=== PATIENT | male | born 1955 | race Caucasian/White ===

== ENCOUNTER 2017-10-27 10:57 | Emergency (ER) | payer MEDICAID ==
[~2017-10-27] VITALS: Ht 165.1 cm; Wt 77.1 kg
[2017-10-27 11:20] VITALS: BP 134/87
== END 2017-10-27 14:11 | disposition left against medical advice (07) ==
LOC: ER 10:57
DX: R10.2 Pelvic and perineal pain (principal); Z53.21 Procedure and treatment not carried out due to patient leaving prior to being seen by health care provider
CPT/HCPCS: 93005

== ENCOUNTER 2018-09-20 08:19 | Inpatient (IN) | payer MEDICAID ==
[~2018-09-20] VITALS: Ht 165.1 cm; Wt 78.3 kg
[2018-09-20] MEDS ORDERED: ONDANSETRON HCL 4 MG/2 ML VIAL ONE (08:41)
[2018-09-20] MEDS ORDERED: ONDANSETRON HCL 4 MG/2 ML VIAL IV ONE (08:45)
[2018-09-20] MEDS ORDERED: SODIUM CHLORIDE 0.9% 1,000 ML IV ONE (08:45)
[2018-09-20 09:08] LABS: Basophils # (auto) 0 uL; Basophils % (auto) 0.2 % (0.0-2.0); Eosinophils # (auto) 0 uL; Eosinophils % (auto) 0.3 % (0.0-7.0); Hematocrit 48.7 % (41.0-53.0); Hemoglobin 17.1 g/dL (13.5-17.5); Lymphocytes # (auto) 0.2 uL; Lymphocytes % (auto) 2.1 % (10.0-50.0); Mean Corpuscular Hemoglobin 33.1 pg (28.0-32.0); Mean Corpuscular Hgb Conc. 35.2 g/dL (32.0-36.0); Monocytes # (auto) 0.2 uL; Monocytes % (auto) 2.7 % (0.0-12.0); Neutrophils % (auto) 94.7 % (37.0-80.0); Platelet Count (auto) 155 10^3/uL (140-450); Red Blood Cells 5.18 10^6/uL (4.5-5.90); Red Cell Distribution Width 13.2 % (11.8-14.3); White Blood Cell 8.5 10^3/uL (4.4-10.8)
[2018-09-20 09:21] LABS: Albumin 4.5 g/dL (3.4-5.0); Calcium 8.8 mg/dL (8.5-10.1); Potassium 3.7 mmol/L (3.5-5.1)
[2018-09-20 09:26] LABS: BUN/Creatinine Ratio 21.1; Bilirubin, Total 0.7 mg/dL (0.2-1.0); Total Protein 7.4 g/dL (6.4-8.2)
[2018-09-20] MEDS ORDERED: metroNIDAZOLE 500MG/100ML 100 ML IV ONE (10:30)
[2018-09-20] MEDS ORDERED: PROMETHAZINE HCL 25 MG/ML 1ML IV ONE (10:30)
[2018-09-20] MEDS: SODIUM CHLORIDE 0.9% 1,000 ML IV SCH ×2 (11:23→21:23)
[2018-09-20] MEDS ORDERED: LORazepam 0.5 MG TAB PO PRN (11:30)
[2018-09-20] MEDS ORDERED: TEMAZEPAM 15 MG CAP PO PRN (11:30)
[2018-09-20] MEDS ORDERED: ACETAMINOPHEN 500 MG TAB PO PRN (11:30)
[2018-09-20] MEDS ORDERED: DEXTROSE (50%) 50ML SYRG IV PRN (11:30)
[2018-09-20] MEDS ORDERED: PROMETHAZINE HCL 25 MG/ML 1ML IV PRN (11:30)
[2018-09-20] MEDS ORDERED: MORPHINE SULFATE 4 MG/ML SYR/VIAL IV PRN (11:30)
[2018-09-20] MEDS ORDERED: NITROGLYCERIN 0.4 MG SL TAB SL PRN (11:30)
[2018-09-20] MEDS ORDERED: cefTRIAXone 1GM/50ML D5W 50 ML IV ONE (11:30)
[2018-09-20] MEDS: FAMOTIDINE (10MG/ML) 2ML VL IV SCH ×2 (11:58→23:16)
[2018-09-20] MEDS ORDERED: metroNIDAZOLE 500MG/100ML 100 ML IV SCH (12:00)
[2018-09-20 12:07] LABS: Amylase 87 U/L (25-115); Lipase 145 U/L (73-393)
[2018-09-20] MEDS: ACCU-CHEK COMFORT CURVE STRIP VI SCH ×3 (12:27→23:21)
[2018-09-20 13:14] VITALS: BP 146/101
[2018-09-20] MEDS: KETOROLAC TROMETH 30 MG/ML 1ML VIAL IV PRN ×2 (13:15→21:24)
[2018-09-20] MEDS ORDERED: ATOR10TA52 PO (15:24)
[2018-09-20] MEDS ORDERED: OMEP20TA PO (15:24)
[2018-09-20 16:38] VITALS: BP 138/95
[2018-09-20] MEDS: metroNIDAZOLE 500MG/100ML 100 ML IV SCH ×2 (17:40→23:16)
[2018-09-20 19:44] LABS: Urine Bacteria NONE SEEN /hpf (None Seen); Urine Blood Negative /uL (Negative); Urine Mucus FEW (None Seen); Urine Specific Gravity 1.028 (1.001-1.035); Urine WBC 1 /hpf (0 - 3)
[2018-09-20 20:13] LABS: Alcohol, Urine < 3.0 mg/dL (0-5); Amphetamine Screen, Urine NEGATIVE (NEGATIVE); Barbiturate Scree,Urine NEGATIVE (NEGATIVE); Benzodiazephine Screen, Urine NEGATIVE (NEGATIVE); Cannabinoid Screen, Urine POSITIVE (NEGATIVE); Cocaine Screen, Urine NEGATIVE (NEGATIVE); Opiate Scree,Urine NEGATIVE (NEGATIVE); Phencyclidine Screen, Urine NEGATIVE (NEGATIVE)
[2018-09-20 22:00] VITALS: BP 119/89
[2018-09-21] MEDS: KETOROLAC TROMETH 30 MG/ML 1ML VIAL IV PRN ×2 (04:20→10:47)
[2018-09-21 04:56] VITALS: BP 131/87
[2018-09-21] MEDS: ACCU-CHEK COMFORT CURVE STRIP VI SCH (05:49)
[2018-09-21] MEDS: metroNIDAZOLE 500MG/100ML 100 ML IV SCH (05:50)
[2018-09-21 06:41] LABS: Basophils # (auto) 0 uL; Basophils % (auto) 0.2 % (0.0-2.0); Eosinophils # (auto) 0 uL; Eosinophils % (auto) 0.8 % (0.0-7.0); Hematocrit 43.9 % (41.0-53.0); Hemoglobin 15.2 g/dL (13.5-17.5); Lymphocytes # (auto) 0.5 uL; Lymphocytes % (auto) 9.1 % (10.0-50.0); Mean Corpuscular Hemoglobin 32.6 pg (28.0-32.0); Mean Corpuscular Hgb Conc. 34.7 g/dL (32.0-36.0); Mean Corpuscular Volume 93.8 fL (80.0-100.0); Monocytes # (auto) 0.4 uL; Monocytes % (auto) 7.6 % (0.0-12.0); Neutrophils # (auto) 4.6 uL; Neutrophils % (auto) 82.3 % (37.0-80.0); Platelet Count (auto) 136 10^3/uL (140-450); Red Blood Cells 4.68 10^6/uL (4.5-5.90); Red Cell Distribution Width 13.3 % (11.8-14.3); White Blood Cell 5.6 10^3/uL (4.4-10.8)
[2018-09-21 06:42] LABS: Potassium 3.3 mmol/L (3.5-5.1)
[2018-09-21 06:50] LABS: Albumin 3.2 g/dL (3.4-5.0); BUN/Creatinine Ratio 21.4; Bilirubin, Total 0.6 mg/dL (0.2-1.0); Calcium 7.8 mg/dL (8.5-10.1); Total Protein 5.6 g/dL (6.4-8.2)
[2018-09-21 08:36] VITALS: BP 129/79
[2018-09-21] MEDS ORDERED: cefTRIAXone 1GM/50ML D5W 50 ML IV SCH (09:00)
[2018-09-21] MEDS: SODIUM CHLORIDE 0.9% 1,000 ML IV SCH ×2 (09:55→13:27)
[2018-09-21] MEDS ORDERED: PANTOPRAZOLE 40 MG TAB PO ONE (12:00)
[2018-09-21] MEDS ORDERED: POTASSIUM CHL 20 Meq TABLET PO ONE (12:00)
[2018-09-21 12:19] VITALS: BP 133/94
[2018-09-21] MEDS: traMADol HCL 50 MG TAB PO PRN ×2 (13:46→21:53)
[2018-09-21 16:59] VITALS: BP 148/98
[2018-09-21] MEDS: PANTOPRAZOLE 40 MG TAB PO SCH (21:53)
[2018-09-21 22:00] VITALS: BP 137/85
[2018-09-22] MEDS: SODIUM CHLORIDE 0.9% 1,000 ML IV SCH (01:28)
[2018-09-22 05:00] VITALS: BP 135/91
[2018-09-22] MEDS: PANTOPRAZOLE 40 MG TAB PO SCH (09:35)
[2018-09-22] MEDS: traMADol HCL 50 MG TAB PO PRN ×2 (09:35→15:35)
[2018-09-22 12:27] VITALS: BP 146/90
[2018-09-22 17:29] VITALS: BP 147/90
== END 2018-09-22 18:45 | disposition home or self-care (01) | DRG 816 ==
LOC: ER 08:21 → TELE 11:23 → TELE-EAST 13:05
PROVIDERS: ADMIT Internal Medicine; ATTEND Internal Medicine
DX: T62.91XA Toxic effect of unspecified noxious substance eaten as food, accidental (unintentional), initial encounter (principal); E44.0 Moderate protein-calorie malnutrition; B19.20 Unspecified viral hepatitis C without hepatic coma; K52.9 Noninfective gastroenteritis and colitis, unspecified; E87.6 Hypokalemia; J45.909 Unspecified asthma, uncomplicated; R00.0 Tachycardia, unspecified; Z83.3 Family history of diabetes mellitus; Z90.49 Acquired absence of other specified parts of digestive tract; Z87.891 Personal history of nicotine dependence; Y92.89 Other specified places as the place of occurrence of the external cause; Z68.28 Body mass index [BMI] 28.0-28.9, adult
CPT/HCPCS: 36415; 71045; 74176; 80053; 80307; 81001; 82150; 82962; 83036; 83690; 84443; 85025; 85652; 86141; 87081; 94761; 96361; 96365; 96367; 96375; G0378; J0696; J1885; J2405; J3490

== ENCOUNTER 2019-03-07 05:37 | Emergency (ER) | payer MEDICAID ==
[~2019-03-07] VITALS: Ht 165.1 cm; Wt 81.6 kg
[~2019-03-07 05:37] MED LIST: ATOR10TA52 PO; OMEP20TA PO
[2019-03-07] MEDS ORDERED: HYDROcodone-ACET 5/325MG TAB PO ONE (06:30)
[2019-03-07 07:25] LABS: Basophils # (auto) 0 uL; Basophils % (auto) 0.9 % (0.0-2.0); Eosinophils # (auto) 0.1 uL; Hematocrit 47.9 % (41.0-53.0); Hemoglobin 16.4 g/dL (13.5-17.5); Lymphocytes # (auto) 1.2 uL; Lymphocytes % (auto) 24.4 % (10.0-50.0); Mean Corpuscular Hemoglobin 32.3 pg (28.0-32.0); Mean Corpuscular Hgb Conc. 34.2 g/dL (32.0-36.0); Mean Corpuscular Volume 94.3 fL (80.0-100.0); Monocytes # (auto) 0.4 uL; Monocytes % (auto) 8.9 % (0.0-12.0); Neutrophils # (auto) 3.1 uL; Neutrophils % (auto) 63.8 % (37.0-80.0); Platelet Count (auto) 169 10^3/uL (140-450); Red Blood Cells 5.07 10^6/uL (4.5-5.90); Red Cell Distribution Width 12.8 % (11.8-14.3); White Blood Cell 4.9 10^3/uL (4.4-10.8)
[2019-03-07 07:28] LABS: INR 1.07 (0.9-1.15); Partial Thromboplastin Time 29.1 sec (23.78-33.04); Prothrombin Time 11.4 sec (9.27-12.13)
[2019-03-07 07:30] LABS: Albumin 4.1 g/dL (3.4-5.0); BUN/Creatinine Ratio 13.7; Potassium 4.3 mmol/L (3.5-5.1)
[2019-03-07 07:33] LABS: Bilirubin, Total 0.7 mg/dL (0.2-1.0); Total Protein 7.1 g/dL (6.4-8.2)
[2019-03-07 07:35] VITALS: BP 150/102
== END 2019-03-07 08:35 | disposition home or self-care (01) ==
LOC: ER 05:41
DX: L76.22 Postprocedural hemorrhage of skin and subcutaneous tissue following other procedure (principal); M19.90 Unspecified osteoarthritis, unspecified site; K21.9 Gastro-esophageal reflux disease without esophagitis; E78.5 Hyperlipidemia, unspecified; Z90.49 Acquired absence of other specified parts of digestive tract; Y83.8 Other surgical procedures as the cause of abnormal reaction of the patient, or of later complication, without mention of misadventure at the time of the procedure; Y82.8 Other medical devices associated with adverse incidents
CPT/HCPCS: 36415; 80053; 85025; 85610; 85730

== ENCOUNTER 2019-12-07 18:58 | Emergency (ER) | payer MEDICAID ==
[~2019-12-07] VITALS: Ht 165.1 cm; Wt 77.1 kg
[2019-12-07 21:32] LABS: Urine Bacteria NONE SEEN /hpf (None Seen); Urine Blood Negative /uL (Negative); Urine Mucus FEW (None Seen); Urine Specific Gravity 1.021 (1.001-1.035); Urine WBC <1 /hpf (0 - 3)
[2019-12-07 22:15] VITALS: BP 130/95
== END 2019-12-07 22:35 | disposition home or self-care (01) ==
LOC: ER 18:58
DX: S83.91XA Sprain of unspecified site of right knee, initial encounter (principal); K21.9 Gastro-esophageal reflux disease without esophagitis; E78.5 Hyperlipidemia, unspecified; Z90.49 Acquired absence of other specified parts of digestive tract; X50.1XXA Overexertion from prolonged static or awkward postures, initial encounter; Y93.89 Activity, other specified; Y92.89 Other specified places as the place of occurrence of the external cause; Y99.8 Other external cause status
CPT/HCPCS: 36415; 73590; 81001; 85379

== ENCOUNTER 2021-11-19 03:56 | Emergency (ER) | payer OTHER, MEDICAID ==
[~2021-11-19] VITALS: Ht 172.7 cm; Wt 79.4 kg
[2021-11-19 07:25] VITALS: BP 161/105
[2021-11-19] MEDS ORDERED: DexAMETHasone SOD PHOS 10MG/1ML VIAL INJ IV ONE (07:45)
[2021-11-19] MEDS ORDERED: cefTRIAXone 1GM/50ML D5W 50 ML IV ONE (07:45)
[2021-11-19] MEDS ORDERED: AZIT250T8 PO (08:28)
[2021-11-19] MEDS ORDERED: PRED20TA2 PO (08:28)
== END 2021-11-19 08:38 | disposition home or self-care (01) ==
LOC: ER 03:56
DX: J45.909 Unspecified asthma, uncomplicated (principal); Z20.822 Contact with and (suspected) exposure to COVID-19
CPT/HCPCS: 36415; 71045; 87426; 96365; 96375; 99284; J0696; J1100

== ENCOUNTER 2022-09-14 20:43 | Emergency (ER) | payer OTHER, MEDICAID ==
[~2022-09-14] VITALS: Ht 165.1 cm; Wt 79.0 kg
[~2022-09-14 20:43] MED LIST changes: +AZIT250T8 PO; +PRED20TA2 PO
[2022-09-15] MEDS ORDERED: IBUPROFEN 800 MG TAB PO ONE (01:15)
[2022-09-15 03:49] VITALS: BP 128/84
[2022-09-15] MEDS ORDERED: ALBUAER3 IN (04:15)
[2022-09-15] MEDS ORDERED: AZIT250T8 PO (04:15)
[2022-09-15] MEDS ORDERED: OSEL75CA5 PO (04:15)
== END 2022-09-15 04:25 | disposition home or self-care (01) ==
LOC: ER 20:43
DX: J11.1 Influenza due to unidentified influenza virus with other respiratory manifestations (principal); J18.9 Pneumonia, unspecified organism; J45.909 Unspecified asthma, uncomplicated; R07.89 Other chest pain; Z90.49 Acquired absence of other specified parts of digestive tract; Z20.822 Contact with and (suspected) exposure to COVID-19
CPT/HCPCS: 36415; 71046; 87426; 87804

== ENCOUNTER 2023-03-19 05:57 | Emergency (ER) | payer OTHER, MEDICAID ==
[~2023-03-19] VITALS: Ht 165.1 cm; Wt 79.5 kg
[~2023-03-19 05:57] MED LIST changes: +ALBUAER3 IN; +OSEL75CA5 PO
[2023-03-19 07:34] VITALS: BP 142/83
[2023-03-19] MEDS ORDERED: ACETAMINOPHEN 500 MG TAB PO ONE (08:15)
[2023-03-19] MEDS ORDERED: LIDO5PAD8 EX (09:46)
[2023-03-19] MEDS ORDERED: CYCL-837 PO (09:46)
[2023-03-19] MEDS ORDERED: GABA100C9 PO (09:46)
== END 2023-03-19 10:10 | disposition home or self-care (01) ==
LOC: ER 05:57
DX: S39.012A Strain of muscle, fascia and tendon of lower back, initial encounter (principal); I10 Essential (primary) hypertension; E78.5 Hyperlipidemia, unspecified; J45.909 Unspecified asthma, uncomplicated; K21.9 Gastro-esophageal reflux disease without esophagitis; Z90.49 Acquired absence of other specified parts of digestive tract; Z79.2 Long term (current) use of antibiotics; Z79.899 Other long term (current) drug therapy; X58.XXXA Exposure to other specified factors, initial encounter; Y93.89 Activity, other specified; Y92.89 Other specified places as the place of occurrence of the external cause; Y99.8 Other external cause status
CPT/HCPCS: 72131

== ENCOUNTER 2025-02-24 10:07 | Inpatient (IN) | payer OTHER, MEDICAID ==
[~2025-02-24] VITALS: Ht 165.1 cm; Wt 89.0 kg
[~2025-02-24 10:07] MED LIST changes: +AZIT-185 PO; -AZIT250T8 PO; +CYCL-837 PO; +GABA-1308 PO; +LIDO5PAD12 EX
--- NOTE | 2025-02-24 10:30 | ED.PDOC ---
HPI Comments 69 year old male presents to the ED with a chief complaint of chest pain onset today (02/24/25) about 30 minutes ago. Patient states he was cleaning his dashboard, sneezed and began experiencing sharp chest pain, heard a "snap", thinks he might have broken a rib. PMHx HTN, HLD, GERD, arthritis, asthma. Denies injury, fall, trauma, shortness of breath, dizziness, nausea, vomiting, diarrhea. No other symptoms or modifying factors present at this time. Chief Complaint: Chest Pain Time Seen by MD: 10:25 Primary Care Provider: ANIYAH Reviewed Notes: Nurses Notes, Medications, Allergies Allergies: Coded Allergies: NO KNOWN ALLERGIES (Unverified , 07/15/11) Home Meds Active Scripts Gabapentin (Gabapentin) 100 Mg Cap, 1 CAP PO TID, #90 CAP 0 Refills Prov:JESSEE KATZ [facility] 03/19/23 Cyclobenzaprine Hcl (Cyclobenzaprine Hcl) 5 Mg Tab, 1 TAB PO TID, #12 TAB 0 Refills Prov:JESSEE KATZ [facility] 03/19/23 Lidocaine (Lidocaine Patch 5%) 5 % Pad, 1 APPLIC EX DAILY PRN, #30 PATCH 0 Refills Prov:JESSEE KATZ [facility] 03/19/23 Oseltamivir Phosphate (Tamiflu) 75 Mg Cap, 1 CAP PO BID for 5 Days, #10 CAP 0 Refills Prov:CLARK OLIVEROS 09/15/22 Albuterol Sulfate (VENTOLIN MDI) 90 Mcg Ih, 90 MCG IN PRN PRN, #1 INH 0 Refills Prov:CLARK OLIVEROS 09/15/22 Azithromycin (ZITHROMAX TABLET) 250 Mg Tb, 250 MG PO DAILY, #5 TAB 0 Refills Prov:CLARK OLIVEROS 09/15/22 Prednisone (Prednisone) 20 Mg Tab, 60 MG PO DAILY for 5 Days, #15 MG 0 Refills Prov:PASTOR RAM 11/19/21 Azithromycin (ZITHROMAX TABLET) 250 Mg Tb, 250 MG PO DAILY for 6 Days, #6 TAB Prov:PASTOR RAM 11/19/21 Reported Medications Omeprazole (Gnp Omeprazole) 20 Mg Tab, 40 MG PO DAILY, TAB 09/20/18 Atorvastatin Calcium (ATORVASTATIN CALCIUM) 10 Mg Tab, 1 TAB PO DAILY, #30 TAB 5 Refills 09/20/18 Information Source: Patient Mode of Arrival: Ambulatory Severity: Moderate Timing: Minutes Duration: Since onset Prehospital treatment: None Location: Chest (L) Radiation: No Radiation Onset: At Rest Cardiac Risk Factors: Hyperlipidemia, HTN PE Risk Factors: None History of: None Modifying Factors: Nothing Past Medical History PAST MEDICAL HISTORY: Arthritis, Asthma, GERD, High Lipids, HTN Surgical History: Cholecystectomy Surgical History (Other): brain surgery, LT femur surgery Family History Family History: Family hx of DM, Family hx of heart daryl, Family hx of HTN, Family hx of lung daryl, Family hx of stroke Social History Smoker: Non-Smoker Alcohol: Denies ETOH Use Drugs: Denies Drug Use Lives In: Home Constitutional: denies: chills, diaphoresis, fatigue, fever, malaise, sweats, weakness, others EENTM: denies: blurred vision, double vision, ear bleeding, ear discharge, ear drainage, ear pain, ear ringing, eye pain, eye redness, hearing loss, mouth pain, mouth swelling, nasal discharge, nose bleeding, nose congestion, nose pain, photophobia, tearing, throat pain, throat swelling, voice changes, others Respiratory: denies: cough, hemoptysis, orthopnea, SOB at rest, shortness of breath, SOB with excertion, stridor, wheezing, others Cardiovascular: reports: chest pain; denies: dizzy spells, diaphoresis, Dyspnea on exertion, edema, irregular heart beat, left arm pain, lightheadedness, palpitations, PND, syncope, others Gastrointestinal: denies: abdomen distended, abdominal pain, blood streaked bowels, constipated, diarrhea, dysphagia, difficulty swallowing, hematemesis, melena, nausea, poor appetite, poor fluid intake, rectal bleeding, rectal pain, vomiting, others Genitourinary: denies: burning, dysuria, flank pain, frequency, hematuria, incontinence, penile discharge, penile sore, pain, testicle pain, testicle swelling, urgency, others Neurological: denies: dizziness, fainting, headache, left sided numbness, left sided weakness, numbness, paresthesia, pre-existing deficit, right sided numbness, right sided weakness, seizure, speech problems, tingling, tremors, weakness, others Musculoskeletal: denies: back pain, gout, joint pain, joint swelling, muscle pain, muscle stiffness, neck pain, others Integumetry: denies: bruises, change in color, change in hair/nails, dryness, laceration, lesions, lumps, rash, wounds, others Allergic/Immunocompromised: denies: Difficulty Healing, Frequent Infections, Hives, Itching, others Hematologic/Lymphatic: denies: anemia, blood clots, easy bleeding, easy bruising, swollen glands, others Endocrine: denies: excessive hunger, excessive sweating, excessive thirst, excessive urination, flushing, intolerance to cold, intolerance to heat, unexplained weight gain, unexplained weight loss, others Psychiatric: denies: anxiety, bipolar disorder, depression, hopeless, panic disorder, schizophrenia, sleepless, suicidal, others All Other Systems: Reviewed and Negative Physical Exam General Appearance: Mild Distress HEENT: Normal ENT Inspection, Pharynx Normal, TMs Normal Neck: Full Range of Motion, Non-Tender, Normal, Normal Inspection Respiratory: Chest Non-Tender, Lungs Clear, No Accessory Muscle Use, No R espiratory Distress, Normal Breath Sounds Cardiovascular: No Edema, No JVD, No Murmur, No Gallop, Normal Peripheral Pulses, Regular Rate/Rhythm Breast Exam: Deferred Gastrointestinal: No Organomegaly, Non Tender, No Pulsatile Mass, Normal Bowel Sounds, Soft Genitalia: Deferred Pelvic: Deferred Rectal: Deferred Extremities: No calf tenderness, Normal capillary refill, Normal inspection, Normal range of motion, Non-tender, No pedal edema Musculoskeletal : Apperance: Normal Neurologic: Alert, shot polisher II-XII nml as Tested, No Motor Deficits, Normal Affect, Normal Mood, No Sensory Deficits Cerebellar Function: Normal Reflexes: Normal Skin: Dry, Normal Color, Warm Lymphatic: No Adenopathy EKG EKG : Pulse Rate (adult): 89 Cardiac Rhythm: NSR Was a procedure done? Was a procedure done?: No CP Differential Dx Differential Diagnosis: Angina, PAC's Differential Diagnosis: CHF Differential Diagnosis: Pericarditis X-Ray, Labs, Meds, VS Vital Signs Date Time Temp Pulse Resp B/P (MAP) Pulse Ox O2 Delivery O2 Flow Rate FiO2 02/24/25 11:14 98.6 87 18 151/93 (112) 95 98.6 02/24/25 11:14 87 18 95 Room Air 02/24/25 11:11 96 02/24/25 10:30 89 02/24/25 10:12 89 02/24/25 10:10 98.3 85 21 159/88 (111) 96 98.3 Lab Test 02/24/25 11:13 02/24/25 10:18 Range/Units Troponin I High Sensitivity 3 L 4 </=54 ng/L White Blood Count 3.5 L 4.4-10.8 10^3/uL Red Blood Count 4.43 L 4.5-5.90 10^6/uL Hemoglobin 9.8 L 13.5-17.5 g/dL Hematocrit 31.4 L 41.0-53.0 % Mean Corpuscular Volume 71.0 L 80.0-100.0 fL Mean Corpuscular Hemoglobin 22.0 L 28.0-32.0 pg Mean Corpuscular Hemoglobin Concent 31.1 L 32.0-36.0 g/dL Red Cell Distribution Width 15.8 H 11.8-14.3 % Platelet Count 193 140-450 10^3/uL Mean Platelet Volume 8.7 6.9-10.8 fL Neutrophils (%) (Auto) 66.5 37.0-80.0 % Lymphocytes (%) (Auto) 20.7 10.0-50.0 % Monocytes (%) (Auto) 8.0 0.0-12.0 % Eosinophils (%) (Auto) 4.0 0.0-7.0 % Basophils (%) (Auto) 0.8 0.0-2.0 % Neutrophils # (Auto) 2.3 1.6-8.6 10 ^3/uL Lymphocytes # (Auto) 0.7 0.4-5.4 10 ^3/uL Monocytes # (Auto) 0.3 0-1.3 10 ^3/uL Eosinophils # (Auto) 0.1 0-0.8 10 ^3/uL Basophils # (Auto) 0 0-0.2 10 ^3/uL Nucleated Red Blood Cells 0.0 % Sodium Level 145 136-145 mmol/L Potassium Level 3.8 3.5-5.1 mmol/L Chloride Level 108 H 98-107 mmol/L Carbon Dioxide Level 26 20-31 mmol/L Anion Gap 11 5-15 Blood Urea Nitrogen 36 H 9-23 mg/dL Creatinine 0.97 0.700-1.30 mg/dL Glomerular Filtration Rate Calc 85 >90 mL/min BUN/Creatinine Ratio 37.1 H 10.0-20.0 Serum Glucose 100 74-106 mg/dL Calcium Level 10.2 8.7-10.4 mg/dL Current Medications Medications (Trade) Dose Ordered Sig/Eric Route Start Time Stop Time Status Last Admin Aspirin 162 mg ONCE ONCE PO 02/24/25 10:30 02/24/25 10:31 DC 02/24/25 11:16 The chest x-ray shows: IMPRESSION: No acute cardiopulmonary disease. Large hiatal hernia. The patient's CBC shows anemia with a hemoglobin of 9.8 and hematocrit of 31.4 The chemistry panel is within normal limits The patient was given aspirin 162 mg by mouth here in the emergency department's The patient was still having some persistent chest pain and somewhat elevated blood pressure The patient will be admitted to the hospitalist The patient understands and agrees with the management. The patient was diagnosis is also accelerated hypertension The patient will have a Cardiology consult, Images Reviewed?: Images reviewed and evaluated by me Time of 1ST Reevaluation: 10:55 Reevaluation 1ST: Unchanged Patient Education/Counseling: Diagnosis, Treatment, Prognosis Family Education/Counseling: No Family Present Additional Information The following tests were ordered, and results were reviewed by me: TROP-x3, EKG -x3, CBC, XY CHEST 2 VIEWS, BMP I reviewed and agreed with the following test results read by other providers: XY CHEST 2 VIEWS I discussed treatment and results with medical personnel and: patient Comprehensive systems review obtained and negative except for what is stated in the HPI. Departure 1 Departure Time of Disposition: 12:09 Impression: Primary Impression: Acute chest pain Additional Impression: Accelerated hypertension Disposition: 09 ADMITTED INPATIENT Admit to: Tele Condition: Fair Critical Care Note Critical Care Time?: Yes (45 min-critical care time only) Stability Stability form required: Yes Unstable for transfer: Telemetry monitoring (Telemetry monitoring required), ED Physician Assesment (Clinical assesment) Heart Score Heart Score: Heart Score Response (Comments) Value History Moderate Suspicious 1 EKG Repolarization Disturb 1 Age >65 2 Risk Factors 1 or 2 risk factors 1 Troponin Normal limit 0 Total 5 I personally scribed for NICHOLE GASPAR MD ([email or web address]) on 02/24/25 at 10:30. Electronically submitted by Kalyn Narayan ([email or web address]). I personally scribed for NICHOLE GASPAR MD ([email or web address]) on 02/24/25 at 10:35. Electronically submitted by Kalyn Narayan ([email or web address]). NICHOLE GASPAR MD Feb 24, 2025 10:30
[2025-02-24 10:36] LABS: Basophils # (auto) 0 10 ^3/uL (0-0.2); Basophils % (auto) 0.8 % (0.0-2.0); Eosinophils # (auto) 0.1 10 ^3/uL (0-0.8); Hematocrit 31.4 % (41.0-53.0); Hemoglobin 9.8 g/dL (13.5-17.5); Lymphocytes # (auto) 0.7 10 ^3/uL (0.4-5.4); Lymphocytes % (auto) 20.7 % (10.0-50.0); Mean Corpuscular Hgb Conc. 31.1 g/dL (32.0-36.0); Monocytes # (auto) 0.3 10 ^3/uL (0-1.3); Neutrophils # (auto) 2.3 10 ^3/uL (1.6-8.6); Neutrophils % (auto) 66.5 % (37.0-80.0); Platelet Count (auto) 193 10^3/uL (140-450); Red Blood Cells 4.43 10^6/uL (4.5-5.90); Red Cell Distribution Width 15.8 % (11.8-14.3); White Blood Cell 3.5 10^3/uL (4.4-10.8)
[2025-02-24 10:39] LABS: Potassium 3.8 mmol/L (3.5-5.1)
[2025-02-24 10:40] LABS: Anion Gap 11 (5-15); Calcium 10.2 mg/dL (8.7-10.4); Carbon Dioxide 26 mmol/L (20-31)
[2025-02-24 10:41] LABS: Chloride 108 mmol/L (98-107); Sodium 145 mmol/L (136-145)
[2025-02-24 10:45] LABS: BUN/Creatinine Ratio 37.1 (10.0-20.0); Glucose 100 mg/dL (74-106)
[2025-02-24 10:47] LABS: Blood Urea Nitrogen 36 mg/dL (9-23)
--- NOTE | 2025-02-24 11:02 | DVH ---
EXAM: XY CHEST TWO VIEWS ROUTINE CLINICAL HISTORY: CP COMPARISON: CXR2 on DOS: 09/15/22, CHEST TWO VIEWS ROUTINE on DOS: 09/15/22 TECHNIQUE: Frontal and lateral view of the chest was obtained FINDINGS: Lines and Tubes: None Lungs: No focal consolidation. Pleura: No effusion. No pneumothorax. Cardiomediastinal contours: Unremarkable. Large hiatal hernia. Bones: No acute osseous abnormality. IMPRESSION: No acute cardiopulmonary disease. Large hiatal hernia.
[2025-02-24] MEDS: ASPirin 81 mg TAB PO ONE (11:16)
[2025-02-24] MEDS ORDERED: ONDANSETRON HCL 4 MG/2 ML VIAL IV PRN (18:00)
[2025-02-24] MEDS ORDERED: ATORVASTATIN 20 MG TAB PO ONE (18:00)
[2025-02-24] MEDS ORDERED: ASPirin 81 mg TAB PO ONE (18:00)
[2025-02-24] MEDS ORDERED: MORPHINE SULFATE INJ 2 MG/ml SYRG IV PRN (18:00)
[2025-02-24] MEDS ORDERED: NITROGLYCERIN 0.4 MG SL TAB SL PRN (18:00)
[2025-02-24] MEDS ORDERED: ACETAMINOPHEN 325 MG TAB PO PRN (18:00)
--- NOTE | 2025-02-24 18:12 | DVHHPRES ---
History of Present Illness Resident Creating Document: TAMIR HEBERT RESDIENT History of Present Illness 69-year-old male with past medical history of hypertension, dyslipidemia, GERD, osteoarthritis and asthma came to the hospital due to chest pain 30 minutes before coming to the hospictal. Per patient he was cleaning his dashboard, sneezed, bended over, heard a "snap like" sound and subsequently developed sudden sharp left lower chest and left upper quadrant abdominal pain. Pain is localized with no radiation, constant, 9/10, stabbing, worsens with mobility/changing position and reproducible with palpation. He reports Patient has the pain for the 1st time, reports no history of same symptoms. He also reports shortness of breaths, and mild cough. He denies fever, nausea, vomiting, or any recent bowel and bladder habit changes. PMHx: hypertension, dyslipidemia, GERD, osteoarthritis and asthma PSHx: Tonsillectomy, left femur fracture (traumatic) cholecystectomy Family history: Mom had stroke Social history: Ex-smoker, ex marijuana user, denies current drug use Home medication: Calcium supplement, vitamin-C supplement, aspirin, fluticasone, vitamin-D, atorvastatin and omeprazole Allergic history: No known allergy Patient seen and examined at the bedside. Patient is still complaining of left upper quadrant pain. Review of Systems Review of Systems General: patient denies fever, fatigue, weaknes, sweating, any recent changes in appetite and weight HEENT: No headaches, visiual changes, hearing loss, tinnitus, nasal congestion and discharge, and sore throat. Cardiovascular: Reports left-sided lower chest pain Respiratory: Reports cough and shortness of breaths Gastrointestinal: Reports left upper quadrant pain Genitourinary: No dysuria, hematuria, discharge, frequency, urgency, nocturia, incontinence, and urinary retention. Endocrine: No heat or cold intolerance, polydipsia, polyuria, and polyphagia. Neurological: No dizziness, extremity weakness and numbness, tremors, gait disturbance, seizures, and memory impairment. Psychiatric: Denies depression, anxiety,or insomnia. Musculoskeletal: Denies neck pain, stiffness and swelling, back pain, muscle weakness, joint pain, stiffness, swelling, or limited range of motion. Skin: No rashes, itching, skin lesion, changes in hair, nail, skin texture and breast. Hematologic/Lymphatic: Denies easy bruising, bleeding tendencies, or lymph node enlargement. Allergies: Coded Allergies: NO KNOWN ALLERGIES (Unverified , 07/15/11) Exam Vital Signs Vital Signs Date Time Temp Pulse Resp B/P (MAP) Pulse Ox O2 Delivery O2 Flow Rate FiO2 02/24/25 15:50 79 18 156/93 (114) 95 02/24/25 11:14 98.6 98.6 02/24/25 11:14 Room Air Exam General Appearance: Alert, Oriented X3, Cooperative, No acute distress HEENT: Atraumatic, PERRLA, EOMI, Mucous membrane moist/pink Respiratory: Clear to auscultation, Normal air movement Cardiovascular: Left lower chest tenderness Abdominal: Left upper quadrant tenderness, nontender abdominal bulging (4 x 4 cm, smooth, nontender) Extremities: Bilateral grade 2 pitting pedal edema Skin: No rashes, No breakdown, No significant lesion Neuro: Normal gait, Normal speech, Strength at 5/5 X4 ext, Normal tone, Sensation intact, Cranial nerves 3-12 NL, Reflexes 2+ Psych/Mental Status: Mental status NL, Mood NL Labs/Xrays Labs Test 02/24/25 11:13 02/24/25 10:18 Range/Units Troponin I High Sensitivity 3 L </=54 ng/L White Blood Count 3.5 L 4.4-10.8 10^3/uL Red Blood Count 4.43 L 4.5-5.90 10^6/uL Hemoglobin 9.8 L 13.5-17.5 g/dL Hematocrit 31.4 L 41.0-53.0 % Mean Corpuscular Volume 71.0 L 80.0-100.0 fL Mean Corpuscular Hemoglobin 22.0 L 28.0-32.0 pg Mean Corpuscular Hemoglobin Concent 31.1 L 32.0-36.0 g/dL Red Cell Distribution Width 15.8 H 11.8-14.3 % Platelet Count 193 140-450 10^3/uL Mean Platelet Volume 8.7 6.9-10.8 fL Neutrophils (%) (Auto) 66.5 37.0-80.0 % Lymphocytes (%) (Auto) 20.7 10.0-50.0 % Monocytes (%) (Auto) 8.0 0.0-12.0 % Eosinophils (%) (Auto) 4.0 0.0-7.0 % Basophils (%) (Auto) 0.8 0.0-2.0 % Neutrophils # (Auto) 2.3 1.6-8.6 10 ^3/uL Lymphocytes # (Auto) 0.7 0.4-5.4 10 ^3/uL Monocytes # (Auto) 0.3 0-1.3 10 ^3/uL Eosinophils # (Auto) 0.1 0-0.8 10 ^3/uL Basophils # (Auto) 0 0-0.2 10 ^3/uL Nucleated Red Blood Cells 0.0 % Sodium Level 145 136-145 mmol/L Potassium Level 3.8 3.5-5.1 mmol/L Chloride Level 108 H 98-107 mmol/L Carbon Dioxide Level 26 20-31 mmol/L Anion Gap 11 5-15 Blood Urea Nitrogen 36 H 9-23 mg/dL Creatinine 0.97 0.700-1.30 mg/dL Glomerular Filtration Rate Calc 85 >90 mL/min BUN/Creatinine Ratio 37.1 H 10.0-20.0 Serum Glucose 100 74-106 mg/dL Calcium Level 10.2 8.7-10.4 mg/dL Assessment/Plan Assessment/Plan Chest pain, R/O ACS Left upper quadrant pain, likely due to muscle strain History of hypertension History of dyslipidemia Possible rib fracture EKGs shows normal sinus rhythm with no acute ST or T-wave changes Serial trop I is within normal limits Chest x-ray shows, questionable minimally displaced fracture left 6th rib Consulted cardiology Check echocardiogram Left-sided Ribs x-ray Aspirin Atorvastatin Pain management History of asthma Osteoarthritis GERD Continue home meds Bicytopenia Leukopenia Moderate anemia, hypochromic microcytic Check iron panel DIET: Cardiac the DVT PROPHYLAXIS: Lovenox GI PROPHYLAXIS:: Protonix CODE STATUS: Goal of care discussed for more 20 minutes, full code DISPOSITION: Telemetry Patient's status and plan discussed with the patient. Case discussed with Dr. Ott. Plan discussed with: Patient, Other (Nurse) My Orders Orders - TAMIR HEBERT Procedure Category Date Status Time Admit ADMIT 02/24/25 Transmitted 17:48 Code Status CODE 02/24/25 Transmitted 17:48 Vital Signs CAROLYN 02/24/25 In Process 17:48 Review Orders With CAROLYN 02/24/25 In Process Adm. 17:48 Consistent DIET 02/24/25 Transmitted Carb(Ccho)Diabetes Dinner Acetaminophen Tablet PHA 02/24/25 Logged (Tylenol Tablet) 18:00 Notify Of Changes CAROLYN 02/24/25 In Process From Base 17:48 Advance Directive CAROLYN 02/24/25 In Process 17:48 Kub Abdomen Single XY 02/24/25 Logged View 17:48 Echo 2d Mode Cardiac US 02/24/25 Logged DOP 17:48 Urinalysis LAB 02/24/25 Logged 17:48 Lipid Panel LAB 02/24/25 Logged 17:48 Patient Condition ORDERS 02/24/25 Transmitted 17:48 Allergies CAROLYN 02/24/25 In Process 17:48 Hydrocodone-Acet PHA 02/24/25 Logged 5/325mg Tab ([place] 18:00 Ondansetron Hcl PHA 02/24/25 Logged (Zofran) 18:00 Drug Screen LAB 02/24/25 Logged 17:48 Hemoglobin A1c LAB 02/24/25 Logged 17:48 Enoxaparin Sodium PHA 02/25/25 Logged (Lovenox) 10:00 Nitroglycerin PHA 02/24/25 Logged Sublingual (Ntrostat 18:00 Morphine Sulfate PHA 02/24/25 Logged Injection 18:00 Oxygen By Nasal RT 02/24/25 Transmitted Cannula 17:48 Stat Ekg For Chest CAROLYN 02/24/25 In Process Pain 17:48 Notify Of Changes CAROLYN 02/24/25 In Process From Base 17:48 Stone Cutter For CAROLYN 02/24/25 In Process 24 Hours 17:48 Emergency Dysrhythmia CAROLYN 02/24/25 In Process Protocol 17:48 Rhythm Strips Once CAROLYN 02/24/25 In Process Every Shift 17:48 Thyroid Stimulating LAB 02/24/25 Logged Hormone 17:48 PTPTT LAB 02/24/25 Logged 17:48 Hepatic Panel LAB 02/24/25 Logged 17:48 * Cardiology Consult CONS 02/24/25 Transmitted 17:48 Complete Blood Count LAB 02/25/25 Verified 04:00 Comprehensive LAB 02/25/25 Verified Metabolic Panel 04:00 PTPTT LAB 02/25/25 Verified 04:00 Aspirin Tablet PHA 02/24/25 Logged 18:00 Aspirin Tablet PHA 02/25/25 Logged 10:00 Atorvastatin (Lipitor) PHA 02/24/25 Logged 18:00 Atorvastatin (Lipitor) PHA 02/24/25 Logged 22:00 Levalbuterol Hcl PHA 02/24/25 Logged (Xopenex Medneb) 18:00 Ipratropium Medneb PHA 02/24/25 Logged (Atrovent Medneb) 18:00 Pantoprazole PHA 02/24/25 Logged (Protonix) 18:00 Pantoprazole PHA 02/25/25 Logged (Protonix) 10:00 Date of Service: Feb 24, 2025 Billing Provider: RITA OTT MD Common Visit Codes: [id number] INP/OBS CARE (HIGH) Secondary Visit Codes: [id number] CARE PLAN 30 MINUTES (20 minutes) Addendum Addendum Addendum I was physically present for the gudino portions of the service provided to patient by THE RESIDENT. I have reviewed the documentation, discussed the case with resident and agree with the resident's documentation except as noted. Also the patient's clinical case was discussed with the patient's nurse. This medical document was created using an electronic medical record system with computerized dictation system. Although this document has been carefully reviewed, there might still be some phonetic and typographical errors. These areas are purely typographical due to imperfections of the software programs, and do not reflect any compromise in the patient's medical care. Late signature. TAMIR HEBERT RESDIENT Feb 24, 2025 18:12 RITA OTT MD Feb 25, 2025 14:06
[2025-02-24 18:18] VITALS: O2SAT 99
[2025-02-24 18:26] LABS: Alanine Aminotransferase 11 U/L (7-40); Albumin 4.5 g/dL (3.2-4.8); Alkaline Phosphatase 70 U/L (46-116); Aspartate Aminotransferase 13 U/L (13-40); Bilirubin, Direct < 0.1 mg/dL (<0.3); Bilirubin, Total 0.3 mg/dL (0.2-1.0); Total Protein 6.7 g/dL (5.7-8.2)
[2025-02-24] MEDS ORDERED: CYCLOBENZAPRINE HCL 10 MG TAB PO PRN (18:30)
[2025-02-24] MEDS: CYCLOBENZAPRINE HCL 10 MG TAB PO ONE (18:39)
[2025-02-24 19:12] LABS: Triglycerides 89 mg/dL (< 150)
[2025-02-24 19:14] LABS: Cholesterol 195 mg/dL (< 200); HDL Cholesterol 59 mg/dL (40-59)
[2025-02-24 19:15] LABS: INR 1.01 (0.9-1.15); Partial Thromboplastin Time 25.1 SEC (24.5-34.5); Prothrombin Time 10.7 sec (9.3-11.8)
[2025-02-24 19:15] LABS: % Iron Saturation 5.8 % (20-55)
[2025-02-24 19:21] LABS: Ferritin 4.5 ng/mL (22-322)
[2025-02-24 19:23] LABS: LDL Cholesterol 133 mg/dL (< 100)
[2025-02-24 19:30] VITALS: BP 138/77; PULSE 75; RESP 18; TEMP 98.6; O2SAT 99
--- NOTE | 2025-02-24 21:17 | DVH ---
Date: 02/24/2025 06:21 PM Examination: XY KUB ABDOMEN SINGLE VIEW History: Abdominal pain Comparison: None TECHNIQUE: Frontal views of the abdomen was obtained. FINDINGS: Surgical clips project over the right upper quadrant. Scattered gas throughout non dilated small and large bowel. Osseous structures are grossly intact. Visualized lung bases are clear. IMPRESSION: Nonobstructive bowel gas pattern.
[2025-02-24] MEDS: ATORVASTATIN 20 MG TAB PO SCH (22:26)
[2025-02-24] MEDS: PANTOPRAZOLE 40 MG/10 ML VIAL INJ IV ONE (22:27)
--- NOTE | 2025-02-24 22:40 | DVH ---
CLINICAL INDICATION: Possible rib fracture TECHNIQUE: 4 radiographic views of the left ribs were obtained. Comparison: None FINDINGS/IMPRESSION: Questionable minimally displaced fracture left 6th rib. The visualized joint space is well maintained. The alignment is anatomical. There is no radiopaque foreign body.
[2025-02-24 22:59] VITALS: BP 150/97; PULSE 67; RESP 20; TEMP 97.7; O2SAT 96
[2025-02-25] VITALS (11 sets, daily range): BP systolic 109–137; BP diastolic 82–87; PULSE 60–96; RESP 12–20; TEMP 97.4–97.8; O2SAT 94–100
[2025-02-25] MEDS ORDERED: FLUT220A6 PO (00:14)
[2025-02-25] MEDS ORDERED: ASPI-543 PO (00:14)
[2025-02-25] MEDS: HYDROcodone-ACET 5/325MG TAB PO PRN (00:36)
[2025-02-25 05:46] LABS: Basophils # (auto) 0 10 ^3/uL (0-0.2); Basophils % (auto) 0.4 % (0.0-2.0); Eosinophils # (auto) 0.2 10 ^3/uL (0-0.8); Eosinophils % (auto) 4.3 % (0.0-7.0); Hematocrit 29.8 % (41.0-53.0); Hemoglobin 9.4 g/dL (13.5-17.5); Lymphocytes # (auto) 1.1 10 ^3/uL (0.4-5.4); Lymphocytes % (auto) 26.7 % (10.0-50.0); Mean Corpuscular Hgb Conc. 31.4 g/dL (32.0-36.0); Mean Corpuscular Volume 70.1 fL (80.0-100.0); Monocytes # (auto) 0.5 10 ^3/uL (0-1.3); Monocytes % (auto) 11.4 % (0.0-12.0); Neutrophils # (auto) 2.4 10 ^3/uL (1.6-8.6); Neutrophils % (auto) 57.2 % (37.0-80.0); Platelet Count (auto) 178 10^3/uL (140-450); Red Blood Cells 4.25 10^6/uL (4.5-5.90); Red Cell Distribution Width 15.7 % (11.8-14.3); White Blood Cell 4.2 10^3/uL (4.4-10.8)
[2025-02-25 05:58] LABS: INR 1.07 (0.9-1.15); Partial Thromboplastin Time 25.9 SEC (24.5-34.5); Prothrombin Time 11.3 sec (9.3-11.8)
[2025-02-25 06:03] LABS: Albumin 4.2 g/dL (3.2-4.8); Alkaline Phosphatase 55 U/L (46-116); Anion Gap 7 (5-15); BUN/Creatinine Ratio 27.8 (10.0-20.0); Calcium 9.5 mg/dL (8.7-10.4); Carbon Dioxide 29 mmol/L (20-31); Chloride 106 mmol/L (98-107); Glucose 79 mg/dL (74-106); Potassium 3.9 mmol/L (3.5-5.1); Sodium 142 mmol/L (136-145); Total Protein 6.2 g/dL (5.7-8.2)
[2025-02-25 06:04] LABS: Bilirubin, Total 0.6 mg/dL (0.2-1.0)
[2025-02-25 06:09] LABS: Alanine Aminotransferase < 9 U/L (7-40); Aspartate Aminotransferase 11 U/L (13-40); Blood Urea Nitrogen 25 mg/dL (9-23)
--- NOTE | 2025-02-25 06:44 | ECG ---
[facility] Test Date: 2025-02-24 Test Time: 10:12:06 Pat Name: KD HERRON Department: ER Room: [address] [place] [address] A Gender: M Quiller Operator: JOSE : 1955 Requested By: NICHOLE GASPAR Order Number: [id number] Reading MD: Miguel Jain Measurements Intervals [place] Rate: 89 P: 53 CT: 182 QRS: 41 QRSD: 86 T: -3 QT: 329 QTc: 401 Interpretive Statements Sinus rhythm Borderline repolarization abnormality Electronically Signed On 02-25-2025 17:09:38 PDT by Miguel Jain Please click the below link to view image of tracing.
--- NOTE | 2025-02-25 06:45 | DVHPNRES ---
Progress Note Date Seen: Feb 25, 2025 Resident Creating Document: TAMIR HEBERT RESDIENT Medical Necessity Reason Pt with a Central, PICC or Fol: No Subjective Review of Systems Patient seen and examined at the bedside. Patient is still complaining of left lower chest pain. Patient reports: No new complaints Changes from previous H/P or p: No Changes Objective vital signs Vital Sign Date Time Temp Pulse Resp B/P (MAP) Pulse Ox O2 Delivery O2 Flow Rate FiO2 02/25/25 05:12 66 12 137/86 (103) 99 02/24/25 22:59 97.7 97.7 02/24/25 22:59 Room Air* 0 21 Total Intake and Output 02/24/25 02/24/25 02/25/25 15:00 23:00 07:00 Intake Total 100 ml Balance 100 ml medications Current Medications Medications Dose Ordered Sig/Eric Route Start Time Stop Time Status Last Admin Dose Admin Acetaminophen 650 mg Q6HP PRN PO 02/24/25 18:00 Acetaminophen/ Hydrocodone Bitart 1 tab Q4HP PRN PO 02/24/25 18:00 02/25/25 00:36 1 TAB Ondansetron HCl 4 mg Q4HP PRN IV 02/24/25 18:00 Enoxaparin Sodium 40 mg DAILY SC 02/25/25 10:00 Nitroglycerin 0.4 mg Q5MINP PRN SL 02/24/25 18:00 Morphine Sulfate 2 mg Q30M PRN IV 02/24/25 18:00 Aspirin 81 mg DAILY PO 02/25/25 10:00 Atorvastatin Calcium 80 mg HS PO 02/24/25 22:00 02/24/25 22:26 80 MG Levalbuterol HCl 0.625 mg Q6HR PRN NEB 02/24/25 18:00 Ipratropium [place] 0.5 mg Q6HPRN PRN NEB 02/24/25 18:00 Pantoprazole Sodium 40 mg DAILY IV 02/25/25 10:00 Cyclobenzaprine HCl 10 mg Q8HPRN PRN PO 02/24/25 18:30 laboratory and microbiology Laboratory Tests 02/25/25 04:55 Test 02/25/25 04:55 Range/Units Serum Glucose 79 74-106 mg/dL Labs and/or images reviewed: Labs reviewed by me, Image(s) reviewed by me Problem List/Assessment/Plan Problem List/Assessment/Plan Chest pain, R/O ACS Left upper quadrant pain, likely due to muscle strain History of hypertension History of dyslipidemia Possible rib fracture EKGs shows normal sinus rhythm with no acute ST or T-wave changes Serial trop I is within normal limits Chest x-ray shows, questionable minimally displaced fracture left 6th rib Consulted cardiology, recommended no further cardiology workup Check echocardiogram Left-sided Ribs x-ray Aspirin Atorvastatin Pain management History of asthma Osteoarthritis GERD Continue home meds Bicytopenia Leukopenia Moderate anemia, hypochromic microcytic Check iron panel DIET: Cardiac the DVT PROPHYLAXIS: Lovenox GI PROPHYLAXIS:: Protonix CODE STATUS: Goal of care discussed for more than 18 minutes, full code DISPOSITION: Telemetry Patient's status and plan discussed with the patient. Case discussed with Dr. Salter. Plan discussed with: Patient, Other (RN) My Orders My Orders Orders - TAMIR HEBERT RESDIENT Procedure Category Date Status Time Admit ADMIT 02/24/25 Transmitted 17:48 Code Status CODE 02/24/25 Transmitted 17:48 Vital Signs CAROLYN 02/24/25 In Process 17:48 Review Orders With CAROLYN 02/24/25 In Process Adm.Md 17:48 Consistent DIET 02/24/25 Transmitted Carb(Ccho)Diabetes Dinner Acetaminophen Tablet PHA 02/24/25 In Process (Tylenol Tablet) 18:00 Notify Md Of Changes CAROLYN 02/24/25 In Process From Base 17:48 Advance Directive CAROLYN 02/24/25 In Process 17:48 Kub Abdomen Single XY 02/24/25 Resulted View 17:48 Echo 2d Mode Cardiac US 02/24/25 Logged DOP 17:48 Urinalysis LAB 02/24/25 Logged 17:48 Patient Condition ORDERS 02/24/25 Transmitted 17:48 Allergies CAROLYN 02/24/25 In Process 17:48 Hydrocodone-Acet PHA 02/24/25 In Process 5/325mg Tab ([place] 18:00 Ondansetron Hcl PHA 02/24/25 In Process (Zofran) 18:00 Drug Screen LAB 02/24/25 Logged 17:48 Enoxaparin Sodium PHA 02/25/25 In Process (Lovenox) 10:00 Nitroglycerin PHA 02/24/25 In Process Sublingual (Ntrostat 18:00 Morphine Sulfate PHA 02/24/25 In Process Injection 18:00 Oxygen By Nasal RT 02/24/25 Transmitted Cannula 17:48 Stat Ekg For Chest CAROLYN 02/24/25 In Process Pain 17:48 Notify Md Of Changes CAROLYN 02/24/25 In Process From Base 17:48 Aircraft Maintenance Director For CAROLYN 02/24/25 In Process 24 Hours 17:48 Emergency Dysrhythmia CARLOYN 02/24/25 In Process Protocol 17:48 Rhythm Strips Once CAROLYN 02/24/25 In Process Every Shift 17:48 * Cardiology Consult CONS 02/24/25 Transmitted 17:48 Aspirin Tablet PHA 02/25/25 In Process 10:00 Atorvastatin (Lipitor) PHA 02/24/25 In Process 22:00 Levalbuterol Hcl PHA 02/24/25 In Process (Xopenex Medneb) 18:00 Ipratropium Medneb PHA 02/24/25 In Process (Atrovent Medneb) 18:00 Pantoprazole PHA 02/25/25 In Process (Protonix) 10:00 L Rib X Ray XY 02/24/25 Resulted 18:15 Cyclobenzaprine PHA 02/24/25 In Process Tablet (Flexeril 18:30 Date of Service: Feb 25, 2025 Billing Provider: LIBBY ALEJO MD Common Visit Codes: [id number] INP/OBS CARE(HIGH) TAMIR HEBERT RESDIENT Feb 25, 2025 06:45 LIBBY ALEJO MD February 28, 2025 20:11
[2025-02-25 07:12] LABS: Urine Bacteria None Seen /hpf (None Seen)
[2025-02-25 07:37] LABS: Urine Blood Negative /uL (Negative); Urine Clarity Clear (Clear); Urine Color Light-Yellow (Yellow); Urine Mucus FEW (None Seen); Urine Protein, UAD Negative (Negative); Urine Specific Gravity 1.023 (1.001-1.035); Urine Squamous Epithelial Cell None Seen /hpf (<5); Urine Urobilinogen Normal (Negative); Urine WBC 1 /HPF (0-3)
[2025-02-25 07:42] LABS: Opiate Scree,Urine Neg (NEGATIVE)
[2025-02-25 07:52] LABS: Amphetamine Screen, Urine Neg (NEGATIVE); Barbiturate Scree,Urine Neg (NEGATIVE); Benzodiazephine Screen, Urine Neg (NEGATIVE); Cannabinoid Screen, Urine Neg (NEGATIVE); Cocaine Screen, Urine Neg (NEGATIVE); Phencyclidine Screen, Urine Neg (NEGATIVE)
[2025-02-25] MEDS: ENOXAPARIN SOD 40 MG/0.4 ML SYRINGE SC SCH (09:06)
[2025-02-25] MEDS: ASPirin 81 mg TAB PO SCH (09:06)
[2025-02-25] MEDS: PANTOPRAZOLE 40 MG/10 ML VIAL INJ IV SCH (10:11)
--- NOTE | 2025-02-25 12:44 | DVHINCON2 ---
Date Seen: Feb 25, 2025 Referring Physician MD Silva resident Reason for Consultation Rule out ACS History of Present Illness This is a 69-year-old male patient who presents to the emergency room with chief complaint of left rib pain. The patient reports that yesterday he was cleaning the dashboard in his car when suddenly he had a forceful sneeze. He states that his thoracic area hit the steering wheel with force. He states he heard a "snapping" sound. He reported pain upon his left ribcage upon inhalation and decided to come to the emergency room for further evaluation. Cardiology has been consulted at this time for chest pain. The patient denies any chest pain. Initial twelve lead electrocardiogram reveals normal sinus rhythm with baseline wander. Troponin levels have been negative. A chest x-ray revealed a questionable minimally displaced fracture of the 6th rib. Significant past medical history includes hypertension, dyslipidemia, asthma, osteoarthritis, hepatitis-C, and obesity. Past Medical History Past medical history reviewed. No other significant than mentioned above. Past Surgical History Cholecystectomy Tonsillectomy Family History: Asthma G8 MOTHER Cardiac pacemaker G8 FATHER Diabetes mellitus FH: heart attack G8 MOTHER Family History Family history reviewed. Social History Patient has a 10 pack-year history, quit smoking in 1989 Reports occasional marijuana use Denies any alcohol use Allergies: Coded Allergies: NO KNOWN ALLERGIES (Unverified , 07/15/11) Home Meds Active Scripts Gabapentin (Gabapentin) 100 Mg Cap, 1 CAP PO TID, #90 CAP 0 Refills Prov:JESSEE KATZ HIGHW[facility] TECHNICIAN 03/19/23 Cyclobenzaprine Hcl (Cyclobenzaprine Hcl) 5 Mg Tab, 1 TAB PO TID, #12 TAB 0 Refills Prov:JESSEE KATZ HIGHW[facility] TECHNICIAN 03/19/23 Lidocaine (Lidocaine Patch 5%) 5 % Pad, 1 APPLIC EX DAILY PRN, #30 PATCH 0 Refills Prov:JESSEE KATZ [facility]IGHW[address] TECHNICIAN 03/19/23 Oseltamivir Phosphate (Tamiflu) 75 Mg Cap, 1 CAP PO BID for 5 Days, #10 CAP 0 Refills Prov:CLARK OLIVEROS 09/15/22 Albuterol Sulfate (VENTOLIN MDI) 90 Mcg Ih, 90 MCG IN PRN PRN, #1 INH 0 Refills Prov:CLARK OLIVEROS 09/15/22 Azithromycin (ZITHROMAX TABLET) 250 Mg Tb, 250 MG PO DAILY, #5 TAB 0 Refills Prov:CLARK OLIVEROS 09/15/22 Prednisone (Prednisone) 20 Mg Tab, 60 MG PO DAILY for 5 Days, #15 MG 0 Refills Prov:PASTOR RAM 11/19/21 Azithromycin (ZITHROMAX TABLET) 250 Mg Tb, 250 MG PO DAILY for 6 Days, #6 TAB Prov:PASTOR RAM 11/19/21 Reported Medications Aspirin (Aspir-Low) 81 Mg Tab, 81 MG PO DAILY for 30 Days, MG 02/25/25 Fluticasone Propionate (Fluticasone Propionate Hf) 220 Mcg/Act Aer, 2 PUFF PO BID 02/25/25 Omeprazole (Gnp Omeprazole) 20 Mg Tab, 40 MG PO DAILY, TAB 09/20/18 Atorvastatin Calcium (ATORVASTATIN CALCIUM) 10 Mg Tab, 1 TAB PO DAILY, #30 TAB 5 Refills 09/20/18 Home Meds Home medications reviewed. Current Medications Current Medications Medications (Trade) Dose Ordered Sig/Eric Route PRN Reason Start Time Stop Time Status Last Admin Acetaminophen (Tylenol Tablet) 650 mg Q6HP PRN PO PAIN SCALE 1-3 OR TEMP>100.4 02/24/25 18:00 Acetaminophen/ Hydrocodone Bitart ([place] 5/325MG Tab) 1 tab Q4HP PRN PO MODERATE PAIN (4-6 PAIN SCALE) 02/24/25 18:00 02/25/25 10:11 Ondansetron HCl (Zofran) 4 mg Q4HP PRN IV NAUSEA / VOMITING 02/24/25 18:00 Enoxaparin Sodium (Lovenox) 40 mg DAILY SC 02/25/25 10:00 Nitroglycerin (Ntrostat Sublingual) 0.4 mg Q5MINP PRN SL FOR CHEST PAIN 02/24/25 18:00 Morphine Sulfate 2 mg Q30M PRN IV FOR CHEST PAIN 02/24/25 18:00 Aspirin 81 mg DAILY PO 02/25/25 10:00 02/25/25 09:06 Atorvastatin Calcium (Lipitor) 80 mg HS PO 02/24/25 22:00 02/24/25 22:26 Levalbuterol HCl (Xopenex Medneb) 0.625 mg Q6HR PRN NEB SHORTNESS OF BREATH 02/24/25 18:00 Ipratropium [place] (Atrovent Medneb) 0.5 mg Q6HPRN PRN NEB SHORTNESS OF BREATH 02/24/25 18:00 Pantoprazole Sodium (Protonix) 40 mg DAILY IV 02/25/25 10:00 02/25/25 10:11 Cyclobenzaprine HCl (Flexeril Tablet) 10 mg Q8HPRN PRN PO FOR MUSCLE SPASM 02/24/25 18:30 Review of Systems Constitutional: No symptom reported Ears, Nose, & Throat: No symptom reported Eyes: No symptom reported Neurological: No symptoms reported Pulmonary/Respiratory: No symptoms reported Cardiovascular: No symptom reported Gastrointestinal: No symptom reported Genitourinary: No symptom reported Musculoskeletal: Left ribcage pain Skin: No symptom reported Psychiatric: No symptom reported Endocrine: No symptom reported Hematologic/Lymphatic: No symptom reported Vital Signs Vital Signs Date Time Temp Pulse Resp B/P (MAP) Pulse Ox O2 Delivery O2 Flow Rate FiO2 02/25/25 10:00 98 Nasal Cannula 2.0 02/25/25 10:00 28 02/25/25 07:59 97.4 72 17 109/83 (92) 97.4 Physical Exam General Appearance: Cooperative. Well-developed. Well-nourished. No acute distress. Pulmonary/Respiratory: Clear, bilateral breaths sounds. Cardiovascular/Chest: Regular rate and rhythm. Peripheral Pulses: 2+ Radial (R). 2+ Radial (L). 2+ Pedal (R). 2+ Pedal (L) Abdominal Exam: Normal bowel sounds. Ankle Exam: Negative ankle edema Lower extremities: Negative lower extremity edema Neuro/Mental Status: A/OX4, coherent. Thoughts/Psych: Normal thought pattern. Appropriate mood and affect. Good judgment and insight. Appearance: No acute distress. Skin Exam: Normal inspection. Normal color. Warm and dry. Labs/Diagnostic Data Labs Test 02/25/25 06:12 02/25/25 04:55 02/24/25 11:13 02/24/25 10:18 Range/Units Urine Color Light-yellow Yellow Urine Clarity Clear Clear Urine pH 6.0 5.0-9.0 Urine Specific [place] 1.023 1.001-1.035 Urine Protein Negative Negative Urine Ketones Negative Negative Urine Blood Negative Negative /uL Urine Nitrite Negative Negative Urine Bilirubin Negative Negative Urine Urobilinogen Normal Negative mg/dL Urine Leukocyte Esterase Negative Negative /uL Urine RBC <1 0 - 3 /hpf Urine Microscopic WBC 1 0-3 /HPF Urine Squamous Epithelial Cells None seen <5 /hpf Urine Bacteria None seen None Seen /hpf Urine Mucus Few None Seen Urine Glucose Normal Normal mg/dL Urine Opiates Screen Neg NEGATIVE Urine Fentanyl Screen Neg NEGATIVE Urine Barbiturates Screen Neg NEGATIVE Urine Phencyclidine Screen Neg NEGATIVE Urine Amphetamines Screen Neg NEGATIVE Urine Benzodiazepines Screen Neg NEGATIVE Urine Cocaine Screen Neg NEGATIVE Urine Cannabinoids Screen Neg NEGATIVE White Blood Count 4.2 L 4.4-10.8 10^3/uL Red Blood Count 4.25 L 4.5-5.90 10^6/uL Hemoglobin 9.4 L 13.5-17.5 g/dL Hematocrit 29.8 L 41.0-53.0 % Mean Corpuscular Volume 70.1 L 80.0-100.0 fL Mean Corpuscular Hemoglobin 22.0 L 28.0-32.0 pg Mean Corpuscular Hemoglobin Concent 31.4 L 32.0-36.0 g/dL Red Cell Distribution Width 15.7 H 11.8-14.3 % Platelet Count 178 140-450 10^3/uL Mean Platelet Volume 8.8 6.9-10.8 fL Neutrophils (%) (Auto) 57.2 37.0-80.0 % Lymphocytes (%) (Auto) 26.7 10.0-50.0 % Monocytes (%) (Auto) 11.4 0.0-12.0 % Eosinophils (%) (Auto) 4.3 0.0-7.0 % Basophils (%) (Auto) 0.4 0.0-2.0 % Neutrophils # (Auto) 2.4 1.6-8.6 10 ^3/uL Lymphocytes # (Auto) 1.1 0.4-5.4 10 ^3/uL Monocytes # (Auto) 0.5 0-1.3 10 ^3/uL Eosinophils # (Auto) 0.2 0-0.8 10 ^3/uL Basophils # (Auto) 0 0-0.2 10 ^3/uL Nucleated Red Blood Cells 0.0 % Prothrombin Time 11.3 9.3-11.8 sec Prothrombin Time INR 1.07 0.9-1.15 Activated Partial Thromboplast Time 25.9 24.5-34.5 SEC Sodium Level 142 136-145 mmol/L Potassium Level 3.9 3.5-5.1 mmol/L Chloride Level 106 98-107 mmol/L Carbon Dioxide Level 29 20-31 mmol/L Anion Gap 7 5-15 Blood Urea Nitrogen 25 #H 9-23 mg/dL Creatinine 0.90 0.700-1.30 mg/dL Glomerular Filtration Rate Calc 93 >90 mL/min BUN/Creatinine Ratio 27.8 H 10.0-20.0 Serum Glucose 79 74-106 mg/dL Calcium Level 9.5 8.7-10.4 mg/dL Total Bilirubin 0.6 0.2-1.0 mg/dL Aspartate Amino Transferase (AST) 11 L 13-40 U/L Alanine Aminotransferase (ALT) < 9 7-40 U/L Alkaline Phosphatase 55 46-116 U/L Total Protein 6.2 5.7-8.2 g/dL Albumin 4.2 3.2-4.8 g/dL Troponin I High Sensitivity 3 L </=54 ng/L Hemoglobin A1c 5.3 <5.7 % A1C Iron Level 24 L 65-175 ug/dL Total Iron Binding Capacity 416 250-425 ug/dL Percent Iron Saturation 5.8 L 20-55 % Ferritin 4.5 L 22-322 ng/mL Direct Bilirubin < 0.1 <0.3 mg/dL Triglycerides Level 89 < 150 mg/dL Cholesterol Level 195 < 200 mg/dL LDL Cholesterol 133 H < 100 mg/dL HDL Cholesterol 59 40-59 mg/dL Vitamin B12 Level 3530 H 211-911 pg/mL Vitamin D 25-Hydroxy 39.1 30.0-100 ng/mL Thyroid Stimulating Hormone (TSH) 1.37 0.55-4.78 uIU/mL Assessment Left 6th rib fracture Rule out structural heart disease Hypertension Dyslipidemia Asthma Osteoarthritis History of hepatitis-C Obesity Plan/Recommendation We will continue with the following plan/recommendations (Dr. Jain): We will proceed with obtaining a transthoracic echocardiogram to evaluate cardiac function. The patient denies any kind of chest pain. When asked where he is experiencing pain, the patient points to the left ribcage area. Chest x- ray reveals a questionable minimally displaced fracture of the left 6th rib. The patient is most likely experiencing musculoskeletal pain in the setting of a fractured rib. In the setting of an unremarkable transthoracic echocardiogram, there is no further inpatient cardiac workup indicated at this time. Thank you for allowing us to care for this patient. Please call with any questions or concerns. Critical care time spent: 42 minutes This medical document was created using an electronic medical record system with voice recognition software and computerized dictation system. Although this document has been carefully reviewed, there might still be some phonetic and typographical errors. Occasional wrong-word or ``sound-alike substitutions may have occurred due to the inherent limitations of voice recognition software. These areas are purely typographical due to imperfections of the software programs and do not reflect any compromise in the patient's medical care. Please read the chart carefully and recognize, using context, where these substitutions have occurred. Plan discussed with: Patient NYHA Physical activity limitations: NA Date of Service: Feb 25, 2025 Billing Provider: THERESA DEAN Cardiology Common Codes: [id number] INP/OBS CARE (High) Cardiology Consultation Codes: [id number] CONSULT <45MIN THERESA DEAN Feb 25, 2025 12:44
[2025-02-25] MEDS: LEVALBUTEROL HCL 1.25 MG/3 ML NEB NEB PRN (19:45)
[2025-02-25] MEDS: IPRATROPIUM BROM 0.5 MG/2.5ML INH SOL NEB PRN (19:45)
[2025-02-26] VITALS (7 sets, daily range): BP systolic 115–141; BP diastolic 72–85; PULSE 70–83; RESP 18–20; TEMP 97.7–98.6; O2SAT 94–96
[2025-02-26 05:41] LABS: Basophils # (auto) 0 10 ^3/uL (0-0.2); Basophils % (auto) 0.6 % (0.0-2.0); Eosinophils # (auto) 0.2 10 ^3/uL (0-0.8); Hemoglobin 9.2 g/dL (13.5-17.5); Monocytes # (auto) 0.4 10 ^3/uL (0-1.3); Neutrophils # (auto) 2.6 10 ^3/uL (1.6-8.6); White Blood Cell 4.2 10^3/uL (4.4-10.8)
[2025-02-26 05:44] LABS: Eosinophils % (auto) 4.4 % (0.0-7.0); Lymphocytes % (auto) 23.9 % (10.0-50.0); Mean Corpuscular Hemoglobin 22.1 pg (28.0-32.0); Mean Corpuscular Hgb Conc. 31.8 g/dL (32.0-36.0); Mean Corpuscular Volume 69.6 fL (80.0-100.0); Monocytes % (auto) 8.9 % (0.0-12.0); Neutrophils % (auto) 62.2 % (37.0-80.0); Platelet Count (auto) 162 10^3/uL (140-450); Red Blood Cells 4.18 10^6/uL (4.5-5.90)
[2025-02-26 05:59] LABS: Albumin 3.9 g/dL (3.2-4.8); Alkaline Phosphatase 52 U/L (46-116); Anion Gap 6 (5-15); BUN/Creatinine Ratio 20.8 (10.0-20.0); Blood Urea Nitrogen 20 mg/dL (9-23); Calcium 9.3 mg/dL (8.7-10.4); Carbon Dioxide 30 mmol/L (20-31); Chloride 106 mmol/L (98-107); Glucose 83 mg/dL (74-106); Potassium 3.8 mmol/L (3.5-5.1); Sodium 142 mmol/L (136-145); Total Protein 5.8 g/dL (5.7-8.2)
[2025-02-26 06:00] LABS: Bilirubin, Total 0.5 mg/dL (0.2-1.0)
[2025-02-26 06:05] LABS: Alanine Aminotransferase < 9 U/L (7-40)
[2025-02-26 06:11] LABS: Aspartate Aminotransferase 10 U/L (13-40)
[2025-02-26] MEDS ORDERED: HYDR-4902 PO (11:11)
--- NOTE | 2025-02-26 12:28 | DVHDSRES ---
Discharge Summary Date of Admission Resident Creating Document: TAMIR HEBERT RESDIENT Feb 24, 2025 at 17:48 Date of Discharge: February 26, 2025 Admitting Diagnosis Chest pain Labs/Diagnostic Data: Laboratory Results Test 02/26/25 05:06 02/25/25 06:12 02/25/25 04:55 02/24/25 11:13 White Blood Count 4.2 10^3/uL (4.4-10.8) Red Blood Count 4.18 10^6/uL (4.5-5.90) Hemoglobin 9.2 g/dL (13.5-17.5) Hematocrit 29.0 % (41.0-53.0) Mean Corpuscular Volume 69.6 fL (80.0-100.0) Mean Corpuscular Hemoglobin 22.1 pg (28.0-32.0) Mean Corpuscular Hemoglobin Concent 31.8 g/dL (32.0-36.0) Red Cell Distribution Width 16.0 % (11.8-14.3) Platelet Count 162 10^3/uL (140-450) Mean Platelet Volume 8.1 fL (6.9-10.8) Neutrophils (%) (Auto) 62.2 % (37.0-80.0) Lymphocytes (%) (Auto) 23.9 % (10.0-50.0) Monocytes (%) (Auto) 8.9 % (0.0-12.0) Eosinophils (%) (Auto) 4.4 % (0.0-7.0) Basophils (%) (Auto) 0.6 % (0.0-2.0) Neutrophils # (Auto) 2.6 10 ^3/uL (1.6-8.6) Lymphocytes # (Auto) 1.0 10 ^3/uL (0.4-5.4) Monocytes # (Auto) 0.4 10 ^3/uL (0-1.3) Eosinophils # (Auto) 0.2 10 ^3/uL (0-0.8) Basophils # (Auto) 0 10 ^3/uL (0-0.2) Nucleated Red Blood Cells 0.0 % Sodium Level 142 mmol/L (136-145) Potassium Level 3.8 mmol/L (3.5-5.1) Chloride Level 106 mmol/L (98-107) Carbon Dioxide Level 30 mmol/L (20-31) Anion Gap 6 (5-15) Blood Urea Nitrogen 20 mg/dL (9-23) Creatinine 0.96 mg/dL (0.700-1.30) Glomerular Filtration Rate Calc 86 mL/min (>90) BUN/Creatinine Ratio 20.8 (10.0-20.0) Serum Glucose 83 mg/dL (74-106) Calcium Level 9.3 mg/dL (8.7-10.4) Total Bilirubin 0.5 mg/dL (0.2-1.0) Aspartate Amino Transferase (AST) 10 U/L (13-40) Alanine Aminotransferase (ALT) < 9 U/L (7-40) Alkaline Phosphatase 52 U/L (46-116) Total Protein 5.8 g/dL (5.7-8.2) Albumin 3.9 g/dL (3.2-4.8) Urine Color Light-yellow (Yellow) Urine Clarity Clear (Clear) Urine pH 6.0 (5.0-9.0) Urine Specific [place] 1.023 (1.001-1.035) Urine Protein Negative (Negative) Urine Ketones Negative (Negative) Urine Blood Negative /uL (Negative) Urine Nitrite Negative (Negative) Urine Bilirubin Negative (Negative) Urine Urobilinogen Normal mg/dL (Negative) Urine Leukocyte Esterase Negative /uL (Negative) Urine RBC <1 /hpf (0 - 3) Urine Microscopic WBC 1 /HPF (0-3) Urine Squamous Epithelial Cells None seen /hpf (<5) Urine Bacteria None seen /hpf (None Seen) Urine Mucus Few (None Seen) Urine Glucose Normal mg/dL (Normal) Urine Opiates Screen Neg (NEGATIVE) Urine Fentanyl Screen Neg (NEGATIVE) Urine Barbiturates Screen Neg (NEGATIVE) Urine Phencyclidine Screen Neg (NEGATIVE) Urine Amphetamines Screen Neg (NEGATIVE) Urine Benzodiazepines Screen Neg (NEGATIVE) Urine Cocaine Screen Neg (NEGATIVE) Urine Cannabinoids Screen Neg (NEGATIVE) Prothrombin Time 11.3 sec (9.3-11.8) Prothrombin Time INR 1.07 (0.9-1.15) Activated Partial Thromboplast Time 25.9 SEC (24.5-34.5) Troponin I High Sensitivity 3 ng/L (</=54) Test 02/24/25 10:18 Hemoglobin A1c 5.3 % A1C (<5.7) Iron Level 24 ug/dL (65-175) Total Iron Binding Capacity 416 ug/dL (250-425) Percent Iron Saturation 5.8 % (20-55) Ferritin 4.5 ng/mL (22-322) Direct Bilirubin < 0.1 mg/dL (<0.3) Triglycerides Level 89 mg/dL (< 150) Cholesterol Level 195 mg/dL (< 200) LDL Cholesterol 133 mg/dL (< 100) HDL Cholesterol 59 mg/dL (40-59) Vitamin B12 Level 3530 pg/mL (211-911) Vitamin D 25-Hydroxy 39.1 ng/mL (30.0-100) Thyroid Stimulating Hormone (TSH) 1.37 uIU/mL (0.55-4.78) Other Laboratory Tests 02/26/25 05:06 Brief Hx & Hospital Course: 69-year-old male with past medical history of hypertension, dyslipidemia, GERD, osteoarthritis and asthma came to the hospital due to chest pain 30 minutes before coming to the hospictal. Per patient he was cleaning his dashboard, sneezed, bended over, heard a "snap like" sound and subsequently developed sudden sharp left lower chest and left upper quadrant abdominal pain. Pain is localized with no radiation, constant, 9/10, stabbing, worsens with mobility/changing position and reproducible with palpation. He reports Patient has the pain for the 1st time, reports no history of same symptoms. He also reports shortness of breaths, and mild cough. He denies fever, nausea, vomiting, or any recent bowel and bladder habit changes. PMHx: hypertension, dyslipidemia, GERD, osteoarthritis and asthma PSHx: Tonsillectomy, left femur fracture (traumatic) cholecystectomy Family history: Mom had stroke Social history: Ex-smoker, ex marijuana user, denies current drug use Home medication: Calcium supplement, vitamin-C supplement, aspirin, fluticasone, vitamin-D, atorvastatin and omeprazole Allergic history: No known allergy Hospitalization course: The patient was admitted at the line of chest pain. Patient was given aspirin, atorvastatin, and pain management. Kerrie x-ray performed and showed left side 6th rib nondisplaced fracture. Cardiology consulted and recommended medical management for the rib fracture. EKGs showed normal sinus rhythm with no acute ST or T-wave changes. Serial troponin within normal limit. Home medication for osteoarthritis, GERD and asthma were continued during hospital admission. On 02/26/2025, the patient was feeling better since admission, discharge plan discussed with the patient the patient discharged home. Discharge plan: Follow up with the PCP within 1 week of the discharge [place] 5 mg 3 times daily as needed for pain 6 days Ibuprofen 400 mg 3 times daily for 5 days as needed for pain, can take [id number] Protonix 40 mg daily for 5 days Continue home meds Condition at Discharge: Stable Final Diagnosis/Problems List Chest pain, ruled out ACS Chest pain, due to left 6th rib fracture Left upper quadrant pain, likely due to muscle strain History of hypertension History of dyslipidemia History of asthma Osteoarthritis GERD Bicytopenia Leukopenia Moderate anemia, hypochromic microcytic Ruled out structural heart disease History of hepatitis-C Obesity grade 1 Discharge Disposition: Home Discharge Instruct/Medications Diet: Cardiac 2g Na,low cholest Activity: No Restrictions, As Tolerated Follow Up/Referral: Follow up with the PCP within 1 week after discharge. Medications: [place] 5 minutes 3 times daily as needed for pain 6 days Ibuprofen 400 mg 3 times daily for 5 days as needed for pain, can take [id number] Protonix 40 mg daily for 5 days Continue home meds Discharge Statement: "Patient was advised to return to the ER or call 911 if any headaches, dizziness, shortness of breath, chest pain, abdominal pain, bleeding, fevers, or worsening of medical condition. Patient was counseled about treatment plan, medications, possible side effects, patientverbalized understanding. All questions were answered to the best of my ability. This discharge took greater then 30 minutes in planning, reviewing documentation, counseling the patient, and discussing with other team members." ASSESSMENT ASSESSMENT Assessment Rib Fracture Date of Service: February 26, 2025 Billing Provider: LIBBY ALEJO MD Common Visit Codes: 72330-MKR/OBS DISCH DAY >30min TAMIR HEBERT RESDIENT February 26, 2025 12:28 LIBBY ALEJO MD February 28, 2025 22:14
[2025-02-26] MEDS ORDERED: PANT40TA2 PO (12:29)
--- NOTE | 2025-02-26 12:33 | ECG ---
[facility] Test Date: 2025-02-24 Test Time: 11:11:49 Pat Name: KD HERRON Department: ED Room: 0249T A Gender: M Funeral Service Practitioner/Embalmer: HUY : 1955 Requested By: NICHOLE GASPAR Order Number: [id number] Reading MD: Miguel Jain Measurements Intervals [place] Rate: 96 P: 24 CT: 164 QRS: 12 QRSD: 91 T: -15 QT: 338 QTc: 428 Interpretive Statements Sinus rhythm Low voltage, precordial leads Repol abnrm suggests ischemia, inferior leads Baseline wander in lead(s) II,III,aVF Electronically Signed On 02-26-2025 13:08:33 PDT by Miguel Jain Please click the below link to view image of tracing.
--- NOTE | 2025-02-26 13:25 | DVHSR ---
APPROVED REPORT EXAM: Two-dimensional and M-mode echocardiogram with Doppler and color Doppler. Blood Pressure: 134/85 mmHg INDICATION Chest Pain RISK FACTORS Obesity: Height: 5'5, Weight: 196 DIMENSIONS LVDd3.9 (3.8-5.7cm)LA (2D)3.0 (1.9-4.0cm)Aortic Root3.9 (2.0-3.7cm) LVDs2.8 (2.5-4.0cm)LA (MM) (1.9-4.0cm)Aortic Cusp Exc1.8 (1.5-2.0cm) EF (%) 55.0 (55-70%)Rt. Atrium2.4 (1.9-4.0cm)Asc. Aorta4.0 cm IVSd1.4 (0.7-1.1cm)RV (D) (1.8-2.4cm) PWd1.3 (0.7-1.1cm) Mitral Valve MitralMitral Stenosis E wave0.76m/sMV Mean GR.mmHg A wave0.93m/sMV Peak GR.mmHg E/A ratio0.82D MVAcm2 DECEL [id number] 1/2 Tim[place] Aortic Valve Aortic ValveAortic Stenosis V11.03m/Deann Mean GR.4mmHg V21.31m/Deann Peak GR.7mmHg LVOT Diameter2.3 (1.8-2.4cm)Doppler AVA3.27cm2 AI P 1/2 Vsiz636.31ms Pulmonic Valve V20.72m/s Other Information Quality : Technically LimitedRhythm : Technically limited study due to body habitus.patient position. pt had broken rib on left side, diff icult to get apicals Conclusion lvef 65% normal LV function and size mild LVH normal RV function normal atria no severe valve abnormalities noted normal pericardium dilated ascending aorta at 4.0 cm, correlate with further imaging if indicated
== END 2025-02-26 14:20 | disposition home or self-care (01) | DRG 563 ==
LOC: ER 10:07 → OVERFLOW 17:48 → TELE-EAST 02-25 17:49
PROVIDERS: ADMIT Student in an Organized Health Care Education/Training Program; ATTEND Student in an Organized Health Care Education/Training Program
DX: S29.011A Strain of muscle and tendon of front wall of thorax, initial encounter (principal); S22.32XA Fracture of one rib, left side, initial encounter for closed fracture; K21.9 Gastro-esophageal reflux disease without esophagitis; D50.9 Iron deficiency anemia, unspecified; D72.819 Decreased white blood cell count, unspecified; I10 Essential (primary) hypertension; E78.5 Hyperlipidemia, unspecified; E66.811 Obesity, class 1; J45.909 Unspecified asthma, uncomplicated; Z79.2 Long term (current) use of antibiotics; M19.09 Primary osteoarthritis, other specified site; Z79.899 Other long term (current) drug therapy; Z90.49 Acquired absence of other specified parts of digestive tract; Z83.3 Family history of diabetes mellitus; Z82.5 Family history of asthma and other chronic lower respiratory diseases; Z82.49 Family history of ischemic heart disease and other diseases of the circulatory system; Z82.3 Family history of stroke; Z87.891 Personal history of nicotine dependence; X58.XXXA Exposure to other specified factors, initial encounter; Y93.89 Activity, other specified; Y92.89 Other specified places as the place of occurrence of the external cause; Y99.8 Other external cause status; Z68.32 Body mass index [BMI] 32.0-32.9, adult
CPT/HCPCS: 36415; 71046; 71101; 74018; 80048; 80053; 80061; 80076; 80307; 81001; 82306; 82607; 82728; 83036; 83540; 83550; 84443; 84484; 85025; 85610; 85730; 93005; 93306; 94640; 99291; G0378; J2470